=== PATIENT | male | born 1950 | race Caucasian/White ===

== ENCOUNTER 2024-06-05 07:17 | Day surgery (SDC) | payer MEDICARE, OTHER ==
[2024-06-05] VITALS (9 sets, daily range): BP systolic 127–156; BP diastolic 77–95
[~2024-06-05] VITALS: Ht 175.3 cm; Wt 95.9 kg
[~2024-06-05 07:17] MED LIST: ACET325 PO; ASPI81CH PO; Aldactone25 MG PO; Aspirin EC81 MG PO; CARV3.125 PO; Carvedilol25 MG PO; Carvedilol3.125 MG PO; CeFAZolin Sodium 2,000 MG in NS 100 ML IV SCH; ENULOSE10 GM/156 PO; FURO20 PO; GUAI600T33 PO; LISI5 PO; LOSA25 PO; LOSA50 PO; Lactated Ringer's 1,000 ML IV SCH; Lasix20 MG PO; Prinivil5 MG PO; SPIR25 PO
[2024-06-05] MEDS ORDERED: THERAFLU SEVER PO (07:45)
[2024-06-05] MEDS ORDERED: Ipratropium/Albuterol SulF 2.5-0.5MG/3 ML Amp INH ONE (07:55)
[2024-06-05] MEDS ORDERED: CeFAZolin Sodium 2,000 MG VIAL ONE (07:59)
--- NOTE | 2024-06-05 08:13 | NUR ---
DR MELVIN NOTIFIED OF WHEEZING AUSCULTATED T/O AND PATIENT'S REPORT OF RECENT COLD. DUO NEB GIVEN PER DR MELVIN ORDER.
--- NOTE | 2024-06-05 08:59 | NUR ---
WHEEZING IMPROVED UPON AUSCULTATION POST DUONEB.
[2024-06-05] MEDS ORDERED: Bupivacaine 0.5% HCl 5 MG/ML 30MLVIAL ONE (09:05)
[2024-06-05] MEDS ORDERED: propofoL 20 ML IV ONE (09:18)
[2024-06-05] MEDS ORDERED: FentaNYL Citrate 50 MCG/ML 2 ML Injection ONE (09:18)
[2024-06-05] MEDS ORDERED: Dexamethasone Sod Phos 10 MG/ML 1ML VIAL ONE (09:33)
[2024-06-05] MEDS ORDERED: Ondansetron HCl 2 MG / ML 2ML Vial ONE (09:33)
[2024-06-05] MEDS ORDERED: Ketorolac Tromethamine 30mg Vial ONE (09:33)
[2024-06-05] MEDS ORDERED: FentaNYL Citrate 50 MCG/ML 2 ML Injection IV PRN (09:50)
[2024-06-05] MEDS ORDERED: HYDROmorphone HCl/Pf 1MG SYR IV PRN (09:50)
[2024-06-05] MEDS ORDERED: Albuterol 2.5 MG/3 ML VIAL INH PRN (09:50)
[2024-06-05] MEDS ORDERED: Droperidol 5 mg/2 ml Vial IV PRN (09:50)
[2024-06-05] MEDS ORDERED: Phenylephrine HCl 100 MCG/ML-NS 10MLSYR (1MG/10ML) ONE (09:57)
[2024-06-05] MEDS ORDERED: HYDROcodone 5-APAP 325 TAB PO PRN (10:30)
--- NOTE | 2024-06-05 11:17 | NUR ---
1040 received patient from pacu awake with left flank dressing dry and intact and ASHLEE drain to compressed suction with small amt red drainage. minimal pain. VSS. PO fluids pudding and crackers given, [place] well
--- NOTE | 2024-06-05 11:40 | NUR ---
1120 DC INSTRUCTS GIVEN WELL ASHLEE DRAIN TEACHING WITH PATIENT AND GIRLFRIEND, BOTH GIVE VERBAL UNDERSTANDING. 1125 DC HOME TO CAR VIA W/C.
== END 2024-06-05 11:25 | disposition home or self-care (01) ==
LOC: ORSCMMR 07:17 → ORD 07:30 → ORSCMMR 08:30 → ORD 08:30 → ORSCMMR 11:25
PROVIDERS: Surgery
PROC: 0JB60ZX Excision of Chest Subcutaneous Tissue and Fascia, Open Approach, Diagnostic (ICD-10-PCS; principal; 2024-06-05 08:30)
DX: D17.1 Benign lipomatous neoplasm of skin and subcutaneous tissue of trunk (principal); I10 Essential (primary) hypertension; I50.9 Heart failure, unspecified; F17.210 Nicotine dependence, cigarettes, uncomplicated; F90.9 Attention-deficit hyperactivity disorder, unspecified type; Z79.899 Other long term (current) drug therapy
CPT/HCPCS: 88304; A9270; J0690; J1100; J1885; J2371; J2405; J2704; J3010; J7120

== ENCOUNTER 2025-05-04 04:06 | Emergency (ER) | payer MEDICARE, OTHER ==
[~2025-05-04] VITALS: Ht 175.3 cm; Wt 82.1 kg
[~2025-05-04 04:06] MED LIST changes: -CeFAZolin Sodium 2,000 MG in NS 100 ML IV SCH; -Lactated Ringer's 1,000 ML IV SCH; +THERAFLU SEVER PO
[2025-05-04 04:53] VITALS: BP 141/79
== END 2025-05-04 04:54 | disposition home or self-care (01) ==
LOC: ER 04:06
DX: T18.128A Food in esophagus causing other injury, initial encounter (principal); I11.0 Hypertensive heart disease with heart failure; I50.22 Chronic systolic (congestive) heart failure; Z88.0 Allergy status to penicillin; Z79.899 Other long term (current) drug therapy; Z87.891 Personal history of nicotine dependence; W44.F3XA Food entering into or through a natural orifice, initial encounter
CPT/HCPCS: 99283